=== PATIENT | male | born 1995 | race Two or more races ===

== ENCOUNTER 2023-11-23 15:55 | Inpatient (IN) | payer OTHER ==
[~2023-11-23] VITALS: Ht 182.9 cm; Wt 100.0 kg
[~2023-11-23 15:55] MED LIST: metroNIDAZOLE 500MG/100ML 100 ML IV SCH
[2023-11-23 16:46] LABS: Basophils # (auto) 0 10 ^3/uL (0-0.2); Basophils % (auto) 0.2 % (0.0-2.0); Eosinophils # (auto) 0 10 ^3/uL (0-0.8); Eosinophils % (auto) 0.2 % (0.0-7.0); Hematocrit 44.2 % (41.0-53.0); Hemoglobin 14.5 g/dL (13.5-17.5); Lymphocytes % (auto) 7.7 % (10.0-50.0); Mean Corpuscular Hemoglobin 28.6 pg (28.0-32.0); Mean Corpuscular Hgb Conc. 32.9 g/dL (32.0-36.0); Monocytes # (auto) 0.8 10 ^3/uL (0-1.3); Monocytes % (auto) 6.5 % (0.0-12.0); Neutrophils # (auto) 11.2 10 ^3/uL (1.6-8.6); Neutrophils % (auto) 85.4 % (37.0-80.0); Nucleated Red Blood Cells % 0.1 %; Red Blood Cells 5.08 10^6/uL (4.5-5.90); Red Cell Distribution Width 13.2 % (11.8-14.3); White Blood Cell 13.1 10^3/uL (4.4-10.8)
[2023-11-23 16:50] LABS: Chloride 105 mmol/L (98-107); Potassium 3.7 mmol/L (3.5-5.1); Sodium 134 mmol/L (136-145)
[2023-11-23 16:51] LABS: Anion Gap 8 (5-15); Calcium 9.2 mg/dL (8.7-10.4); Carbon Dioxide 21 mmol/L (20-30)
[2023-11-23] MEDS: SODIUM CHLORIDE 0.9% 1,000 ML IV ONE ×4 (16:53→17:16)
[2023-11-23 16:56] LABS: BUN/Creatinine Ratio 6.6 (10.0-20.0); Blood Urea Nitrogen 8 mg/dL (9-23); Glucose 125 mg/dL (74-106); Lipase 46 U/L (12-53)
[2023-11-23] MEDS: metroNIDAZOLE 500MG/100ML 100 ML IV ONE (17:00)
[2023-11-23] MEDS: IBUPROFEN 800 MG TAB PO ONE (17:15)
[2023-11-23] MEDS: cefTRIAXone 1GM/50ML D5W 50 ML IV ONE (17:32)
[2023-11-23 20:00] VITALS: PULSE 97; RESP 19; O2SAT 93
[2023-11-23 20:37] LABS: Urine Bacteria None Seen /hpf (None Seen)
[2023-11-23] MEDS ORDERED: ONDANSETRON HCL 4 MG/2 ML VIAL IV PRN (21:15)
[2023-11-23] MEDS ORDERED: MORPHINE SULFATE INJ 2 MG/ml SYRG IV PRN ×2 (21:15→22:30)
[2023-11-23] MEDS: SODIUM CHLORIDE 0.9% 1,000 ML IV SCH (21:15)
[2023-11-23] MEDS ORDERED: HYDROcodone-ACET 5/325MG TAB PO PRN (21:15)
[2023-11-23] MEDS ORDERED: DOCUSATE SOD 100 MG CAP PO PRN (21:15)
[2023-11-23 21:38] LABS: Urine Blood Negative /uL (Negative); Urine Clarity Clear (Clear); Urine Color Light-Yellow (Yellow); Urine Protein, UAD Negative (Negative); Urine Specific Gravity 1.015 (1.001-1.035); Urine Urobilinogen Normal (Negative); Urine WBC 1 /hpf (0 - 3); Urine pH 6.5 (5.0-9.0)
[2023-11-23] MEDS ORDERED: NITROGLYCERIN 0.4 MG SL TAB SL PRN (22:30)
[2023-11-24] MEDS: metroNIDAZOLE 500MG/100ML 100 ML IV SCH (00:31)
[2023-11-24] MEDS: ACETAMINOPHEN 325 MG TAB PO PRN (00:36)
[2023-11-24 05:02] LABS: Basophils # (auto) 0.1 10 ^3/uL (0-0.2); Basophils % (auto) 0.5 % (0.0-2.0); Eosinophils # (auto) 0 10 ^3/uL (0-0.8); Eosinophils % (auto) 0.4 % (0.0-7.0); Hematocrit 41.3 % (41.0-53.0); Hemoglobin 13.9 g/dL (13.5-17.5); Lymphocytes # (auto) 1.1 10 ^3/uL (0.4-5.4); Lymphocytes % (auto) 10.9 % (10.0-50.0); Mean Corpuscular Hemoglobin 28.8 pg (28.0-32.0); Mean Corpuscular Hgb Conc. 33.8 g/dL (32.0-36.0); Mean Corpuscular Volume 85.2 fL (80.0-100.0); Monocytes # (auto) 0.8 10 ^3/uL (0-1.3); Neutrophils # (auto) 8.4 10 ^3/uL (1.6-8.6); Neutrophils % (auto) 80.2 % (37.0-80.0); Red Blood Cells 4.84 10^6/uL (4.5-5.90); Red Cell Distribution Width 12.9 % (11.8-14.3); White Blood Cell 10.4 10^3/uL (4.4-10.8)
[2023-11-24 05:15] LABS: Alanine Aminotransferase 30 U/L (7-40); Albumin 3.7 g/dL (3.2-4.8); Alkaline Phosphatase 82 U/L (46-116); Anion Gap 5 (5-15); Aspartate Aminotransferase 23 U/L (13-40); Bilirubin, Total 0.6 mg/dL (0.2-1.0); Blood Urea Nitrogen 12 mg/dL (9-23); Calcium 8.8 mg/dL (8.7-10.4); Carbon Dioxide 26 mmol/L (20-30); Chloride 106 mmol/L (98-107); Glucose 109 mg/dL (74-106); Potassium 3.8 mmol/L (3.5-5.1); Sodium 137 mmol/L (136-145)
[2023-11-24 05:16] LABS: Total Protein 6.6 g/dL (5.7-8.2)
[2023-11-24 07:30] VITALS: PULSE 88; RESP 16; O2SAT 98
[2023-11-24] MEDS ORDERED: SODIUM CHLORIDE 0.9% 1,000 ML IV SCH (10:15)
[2023-11-24] MEDS ORDERED: METR-344 PO (11:35)
[2023-11-24] MEDS ORDERED: LEVO500T91 PO (11:35)
[2023-11-24] MEDS ORDERED: ACE3T PO (11:35)
[2023-11-24 12:38] VITALS: BP 121/72; PULSE 90; RESP 16; TEMP 98.6; O2SAT 98
[2023-11-24] MEDS ORDERED: cefTRIAXone 1GM/50ML D5W 50 ML IV SCH (17:00)
== END 2023-11-24 13:01 | disposition home or self-care (01) | DRG 872 ==
LOC: ER 15:55 → OVERFLOW 22:31
PROVIDERS: ADMIT Nurse Practitioner Family; ATTEND Nurse Practitioner Acute Care
DX: A41.9 Sepsis, unspecified organism (principal); K52.9 Noninfective gastroenteritis and colitis, unspecified; K59.00 Constipation, unspecified; E66.9 Obesity, unspecified; Z68.29 Body mass index [BMI] 29.0-29.9, adult; Z79.899 Other long term (current) drug therapy
CPT/HCPCS: 36415; 74176; 80048; 80053; 81001; 83605; 83690; 85025; 87040; 96365; G0378; J3490

== ENCOUNTER 2024-01-06 07:14 | Inpatient (IN) | payer OTHER ==
[~2024-01-06] VITALS: Ht 182.9 cm; Wt 104.5 kg
[~2024-01-06 07:14] MED LIST changes: +ACE3T PO; +LEVO500T91 PO; +METR-344 PO; -metroNIDAZOLE 500MG/100ML 100 ML IV SCH
[2024-01-06] MEDS: SODIUM CHLORIDE 0.9% 1,000 ML IV ONE ×2 (11:20→20:36)
[2024-01-06 11:30] VITALS: PULSE 81; RESP 19; O2SAT 95
[2024-01-06] MEDS: SODIUM CHLORIDE 0.9% 2,000 ML IV ONE (11:31)
[2024-01-06 11:34] LABS: Basophils # (auto) 0.1 10 ^3/uL (0-0.2); Basophils % (auto) 1.5 % (0.0-2.0); Eosinophils # (auto) 0.3 10 ^3/uL (0-0.8); Eosinophils % (auto) 5.3 % (0.0-7.0); Hematocrit 44.2 % (41.0-53.0); Hemoglobin 15.1 g/dL (13.5-17.5); Lymphocytes # (auto) 1.9 10 ^3/uL (0.4-5.4); Mean Corpuscular Hemoglobin 29.3 pg (28.0-32.0); Mean Corpuscular Hgb Conc. 34.2 g/dL (32.0-36.0); Mean Corpuscular Volume 85.5 fL (80.0-100.0); Monocytes # (auto) 0.4 10 ^3/uL (0-1.3); Monocytes % (auto) 6.5 % (0.0-12.0); Neutrophils % (auto) 53.7 % (37.0-80.0); Nucleated Red Blood Cells % 0.1 %; Red Blood Cells 5.17 10^6/uL (4.5-5.90); Red Cell Distribution Width 13.7 % (11.8-14.3); White Blood Cell 5.7 10^3/uL (4.4-10.8)
[2024-01-06] MEDS: ONDANSETRON HCL 4 MG/2 ML VIAL IV ONE (11:35)
[2024-01-06 11:39] LABS: Urine Bacteria None Seen /hpf (None Seen)
[2024-01-06 11:47] LABS: INR 1.02 (0.9-1.15); Partial Thromboplastin Time 28.7 SEC (24.5-34.5); Prothrombin Time 10.8 sec (9.3-11.8)
[2024-01-06 11:54] LABS: Bilirubin, Total 0.8 mg/dL (0.2-1.0); Total Protein 7.1 g/dL (5.7-8.2)
[2024-01-06 12:05] LABS: Alanine Aminotransferase 32 U/L (7-40); Albumin 4.3 g/dL (3.2-4.8); Alkaline Phosphatase 93 U/L (46-116); Anion Gap 3 (5-15); Aspartate Aminotransferase 19 U/L (13-40); BUN/Creatinine Ratio 9.6 (10.0-20.0); Blood Urea Nitrogen 11 mg/dL (9-23); Calcium 9.5 mg/dL (8.5-10.1); Carbon Dioxide 29 mmol/L (20-30); Chloride 106 mmol/L (98-107); Glucose 94 mg/dL (74-106); Potassium 3.9 mmol/L (3.5-5.1); Sodium 138 mmol/L (136-145)
[2024-01-06 12:13] LABS: Urine Blood Negative /uL (Negative); Urine Clarity Clear (Clear); Urine Color Light-Yellow (Yellow); Urine Mucus FEW (None Seen); Urine Protein, UAD Negative (Negative); Urine Specific Gravity 1.023 (1.001-1.035); Urine Urobilinogen Normal (Negative); Urine WBC <1 /hpf (0 - 3); Urine pH 6.5 (5.0-9.0)
[2024-01-06] MEDS: IOHEXOL 300 MG/ML 100ML BOTTLE IJ ONE (12:30)
[2024-01-06] MEDS: levoFLOXacin 500MG 100 ML IV ONE (18:00)
[2024-01-06] MEDS: metroNIDAZOLE 500MG/100ML 100 ML IV ONE (18:00)
[2024-01-06] MEDS ORDERED: ONDANSETRON HCL 4 MG/2 ML VIAL IV PRN (19:45)
[2024-01-06] MEDS ORDERED: ACETAMINOPHEN 325 MG TAB PO PRN (19:45)
[2024-01-06] MEDS ORDERED: NITROGLYCERIN 0.4 MG SL TAB SL PRN (19:45)
[2024-01-06] MEDS ORDERED: DOCUSATE SOD 100 MG CAP PO PRN (19:45)
[2024-01-06] MEDS ORDERED: HYDROcodone-ACET 5/325MG TAB PO PRN (19:45)
[2024-01-06] MEDS ORDERED: MORPHINE SULFATE INJ 2 MG/ml SYRG IV PRN ×2 (19:45)
[2024-01-06 21:36] LABS: Erythrocyte Sedimentation Rate 6 mm/hr (0-20)
[2024-01-06] MEDS: metroNIDAZOLE 500MG/100ML 100 ML IV SCH (22:37)
[2024-01-07] VITALS (8 sets, daily range): BP systolic 112–128; BP diastolic 59–82; PULSE 17–81; RESP 13–96; TEMP 98.1–98.9; O2SAT 96–97
[2024-01-07 08:08] LABS: Basophils # (auto) 0.1 10 ^3/uL (0-0.2); Basophils % (auto) 1.1 % (0.0-2.0); Eosinophils # (auto) 0.3 10 ^3/uL (0-0.8); Eosinophils % (auto) 5.3 % (0.0-7.0); Hematocrit 43.9 % (41.0-53.0); Hemoglobin 14.9 g/dL (13.5-17.5); Lymphocytes # (auto) 1.6 10 ^3/uL (0.4-5.4); Mean Corpuscular Hgb Conc. 33.9 g/dL (32.0-36.0); Mean Corpuscular Volume 85.6 fL (80.0-100.0); Monocytes # (auto) 0.3 10 ^3/uL (0-1.3); Monocytes % (auto) 6.3 % (0.0-12.0); Neutrophils # (auto) 3.1 10 ^3/uL (1.6-8.6); Neutrophils % (auto) 57.3 % (37.0-80.0); Nucleated Red Blood Cells % 0.1 %; Red Blood Cells 5.13 10^6/uL (4.5-5.90); Red Cell Distribution Width 13.6 % (11.8-14.3); White Blood Cell 5.4 10^3/uL (4.4-10.8)
[2024-01-07 08:18] LABS: Alanine Aminotransferase 27 U/L (7-40); Albumin 3.8 g/dL (3.2-4.8); Alkaline Phosphatase 83 U/L (46-116); Anion Gap 1 (5-15); Aspartate Aminotransferase 15 U/L (13-40); BUN/Creatinine Ratio 9.5 (10.0-20.0); Blood Urea Nitrogen 10 mg/dL (9-23); Calcium 9.1 mg/dL (8.5-10.1); Carbon Dioxide 28 mmol/L (20-30); Chloride 108 mmol/L (98-107); Glucose 101 mg/dL (74-106); Potassium 3.9 mmol/L (3.5-5.1); Sodium 137 mmol/L (136-145)
[2024-01-07 08:19] LABS: Bilirubin, Total 0.5 mg/dL (0.2-1.0); Total Protein 6.3 g/dL (5.7-8.2)
[2024-01-07] MEDS: levoFLOXacin 500MG 100 ML IV SCH (09:46)
[2024-01-07 10:57] LABS: % Iron Saturation 20.4 % (20-55)
[2024-01-07 11:38] LABS: COVID19 ANTIGEN SOFIA FIA NEGATIVE (NEGATIVE)
[2024-01-07 13:13] LABS: Lipase 39 U/L (12-53); Magnesium 1.8 mg/dL (1.6-2.6)
[2024-01-07 22:49] LABS: Amphetamine Screen, Urine Neg (NEGATIVE); Barbiturate Scree,Urine Neg (NEGATIVE); Benzodiazephine Screen, Urine Neg (NEGATIVE); Cannabinoid Screen, Urine Neg (NEGATIVE); Cocaine Screen, Urine Neg (NEGATIVE); Opiate Scree,Urine Neg (NEGATIVE); Phencyclidine Screen, Urine Neg (NEGATIVE)
[2024-01-08 01:00] VITALS: BP_SYST 110; BP_SYST 114; BP_SYST 116; BP_DIAS 75; BP_DIAS 77; BP_DIAS 81; PULSE 65; PULSE 67; PULSE 89; RESP 20; TEMP 97.9; TEMP 98.2; O2SAT 95; O2SAT 98
[2024-01-08 05:00] VITALS: BP 110/95; PULSE 80; RESP 20; TEMP 98; O2SAT 97
[2024-01-08 07:04] LABS: Triglycerides 105 mg/dL (< 150)
[2024-01-08 07:05] LABS: Cholesterol 204 mg/dL (< 200); LDL Cholesterol 151 mg/dL (< 100)
[2024-01-08 07:06] LABS: HDL Cholesterol 51 mg/dL (40-59)
[2024-01-08 08:00] VITALS: PULSE 56; PULSE 81; O2SAT 97
[2024-01-08] MEDS ORDERED: LEVO500T91 PO (08:25)
[2024-01-08] MEDS ORDERED: METR-344 PO (08:25)
[2024-01-08] MEDS ORDERED: ATOR40TA52 PO (08:25)
[2024-01-08 09:06] VITALS: BP 125/74; PULSE 69; RESP 17; TEMP 97.9; O2SAT 97
[2024-01-08 11:56] VITALS: BP 125/74; PULSE 69; RESP 17; TEMP 36.6
[2024-01-08 12:06] LABS: Anti-Centromere B Antibody <0.2 AI (0.0-0.9); Anti-Jo-1 Antibody <0.2 AI (0.0-0.9); Anti-Nuclear Antibody Direct Positive (Negative); Anti-dsDNA Antibody 3 IU/mL (0-9); Antichromatin Antibody <0.2 AI (0.0-0.9); Antiscleroderma-70 Antibody <0.2 AI (0.0-0.9); Sjogren's Anti-SS-A Antibody <0.2 AI (0.0-0.9); Sjogren's Anti-SS-B Antibody <0.2 AI (0.0-0.9); Smith Antibody <0.2 AI (0.0-0.9)
[2024-01-08] MEDS ORDERED: ATORVASTATIN 20 MG TAB PO SCH (22:00)
== END 2024-01-08 13:40 | disposition home or self-care (01) | DRG 641 ==
LOC: ER 07:14 → TELE 19:55 → TELE-WESTW 01-07 02:35
PROVIDERS: ADMIT Internal Medicine; ATTEND Internal Medicine
DX: E86.0 Dehydration (principal); K50.00 Crohn's disease of small intestine without complications; K76.0 Fatty (change of) liver, not elsewhere classified; Z20.822 Contact with and (suspected) exposure to COVID-19; E78.5 Hyperlipidemia, unspecified; E66.9 Obesity, unspecified; I48.91 Unspecified atrial fibrillation; K52.9 Noninfective gastroenteritis and colitis, unspecified; I51.89 Other ill-defined heart diseases; Z68.31 Body mass index [BMI] 31.0-31.9, adult; Z79.899 Other long term (current) drug therapy; Y90.0 Blood alcohol level of less than 20 mg/100 ml
CPT/HCPCS: 36415; 70450; 71045; 74177; 80053; 80061; 80307; 80320; 81001; 82728; 82962; 83036; 83516; 83540; 83550; 83690; 83735; 84443; 84484; 85025; 85610; 85652; 85730; 86038; 86141; 86225; 86235; 86256; 86671; 87040; 87426; 93005; 93886; 96361; 96365; 96368; 96375; 99291; G0378; J1956; J2405; J3490

== ENCOUNTER 2024-12-28 13:32 | Day surgery (SDC) | payer OTHER ==
[2024-12-24 10:42] LABS: Basophils # (auto) 0.1 10 ^3/uL (0-0.2); Basophils % (auto) 1.1 % (0.0-2.0); Eosinophils # (auto) 0.2 10 ^3/uL (0-0.8); Eosinophils % (auto) 3.6 % (0.0-7.0); Hematocrit 46.4 % (41.0-53.0); Hemoglobin 15.9 g/dL (13.5-17.5); Lymphocytes # (auto) 1.6 10 ^3/uL (0.4-5.4); Lymphocytes % (auto) 28.2 % (10.0-50.0); Mean Corpuscular Hgb Conc. 34.3 g/dL (32.0-36.0); Mean Corpuscular Volume 84.7 fL (80.0-100.0); Monocytes # (auto) 0.4 10 ^3/uL (0-1.3); Monocytes % (auto) 7.8 % (0.0-12.0); Neutrophils # (auto) 3.4 10 ^3/uL (1.6-8.6); Neutrophils % (auto) 59.3 % (37.0-80.0); Nucleated Red Blood Cells % 0.2 %; Platelet Count (auto) 262 10^3/uL (140-450); Red Blood Cells 5.47 10^6/uL (4.5-5.90); Red Cell Distribution Width 13.3 % (11.8-14.3); White Blood Cell 5.7 10^3/uL (4.4-10.8)
[2024-12-24 10:57] LABS: INR 0.97 (0.9-1.15); Partial Thromboplastin Time 28.2 SEC (24.5-34.5); Prothrombin Time 10.3 sec (9.3-11.8)
[2024-12-24 11:34] LABS: Alanine Aminotransferase 27 U/L (7-40); Albumin 4.5 g/dL (3.2-4.8); Alkaline Phosphatase 100 U/L (46-116); Anion Gap 9 (5-15); Aspartate Aminotransferase 18 U/L (0-34); BUN/Creatinine Ratio 11.9 (10.0-20.0); Blood Urea Nitrogen 14 mg/dL (9-23); Calcium 9.3 mg/dL (8.7-10.4); Carbon Dioxide 27 mmol/L (20-31); Chloride 104 mmol/L (98-107); Glucose 95 mg/dL (74-106); Potassium 4.2 mmol/L (3.5-5.1); Sodium 140 mmol/L (136-145); Total Protein 7.4 g/dL (5.7-8.2)
[2024-12-24 11:35] LABS: Bilirubin, Total 0.4 mg/dL (0.2-1.0)
[~2024-12-28] VITALS: Ht 180.3 cm; Wt 98.0 kg
[2024-12-28] MEDS ORDERED: SODIUM CHLORIDE LOCK 10 ML ONE (15:44)
[2024-12-28 16:00] VITALS: PULSE 57; RESP 14; O2SAT 100
[2024-12-28] MEDS: fentaNYL CITRATE 100 MCG/2 ML VL ONE (16:04)
[2024-12-28] MEDS: diphenhdrAMINE HCL 50 MG/1 ML VL ONE (16:04)
[2024-12-28] MEDS: MIDAZOLAM HCL 5 MG/ML-1ML VIAL ONE (16:04)
[2024-12-28 16:23] VITALS: PULSE 61; RESP 12; TEMP 97.9; O2SAT 98
--- NOTE | 2024-12-28 16:27 | DVHOP2 ---
Operative Report DATE OF OPERATION: 12/28/24 PROCEDURE: Colonoscopy with biopsy. PREOPERATIVE INDICATION: The patient is a 29 -year-old male undergoing colonoscopy for abdominal pain and abnormal finding grossing GI tract imaging POSTOPERATIVE DIAGNOSES: 1. Minimal ileitis seen in the distal 10 cm of the terminal ileum with some hyperemia erythema superficial erosions and biopsies were obtained 2. Trace internal hemorrhoids otherwise completely normal colonoscopy examination up to the terminal ileum PROCEDURE PERFORMED BY: Obi Vera M.D. SCOPE: Olympus videocolonoscope. ASA CLASS: 2 PREOPERATIVE MEDICATIONS: Versed 4 mg, Fentanyl 100 mcg, Benadryl 50 mg PROCEDURE IN DETAIL: After obtaining an informed consent, the patient was placed on left lateral decubitus position. He was then sedated with the above medications. A rectal examination was performed that was normal. The colonoscope was then passed through the anus into the rectosigmoid and through the descending, transverse, and ascending colon up to the cecum with visualization of the appendiceal orifice, base of the cecum and the ileocecal valve. The colonoscope was then withdrawn. In the distal 10 cm of the terminal ileum there was minimal ileitis There was some hyperemia and superficial erosions. Terminal ileum biopsies were obtained. There was no stricture or obstruction. No polyps masses or diverticular disease There was no evidence of colitis. On retroflexion and straight on view he had 1+ internal hemorrhoids The patient tolerated the procedure well without difficulty. WITHDRAWAL TIME: 6 minute QUALITY OF THE PREP: [place] Bowel Prep score: 9. COMPLICATIONS : None SPECIMENS: Terminal ileum biopsies DISPOSITION: Stable D/C to home PLAN: 1. Repeat colonoscopy base on biopsy result likely in 10 years 2. Resume GI soft diet advance as tolerated 3. Check IBD panel, consider treatment with Entocort and mesalamine 4. Outpatient follow up with me in 4-6 weeks to review results and discuss further management OBI VERA MD Dec 28, 2024 16:27
[2024-12-28 16:43] VITALS: BP 120/75; PULSE 70; RESP 12; O2SAT 96
== END 2024-12-28 15:04 | disposition home or self-care (01) ==
LOC: GI 13:32
PROVIDERS: ATTEND Internal Medicine Gastroenterology
DX: R93.3 Abnormal findings on diagnostic imaging of other parts of digestive tract (principal); R10.9 Unspecified abdominal pain; K52.89 Other specified noninfective gastroenteritis and colitis; K64.8 Other hemorrhoids; I10 Essential (primary) hypertension; Z79.899 Other long term (current) drug therapy
CPT/HCPCS: 36415; 45380; 80053; 85025; 85610; 85730; 88305; J1200; J2250; J3010; J7030; 99152

== ENCOUNTER 2025-04-07 10:25 | Outpatient (CLI) | payer OTHER | END 2025-04-07 17:00 | disposition home or self-care (01) | LOC: LAB 10:25 | PROVIDERS: ATTEND Internal Medicine Gastroenterology | DX: R10.9 Unspecified abdominal pain (principal) | CPT/HCPCS: 86003 ==